=== PATIENT | male | born 1960 | race Caucasian/White ===

== ENCOUNTER 2016-07-23 01:50 | Emergency (ER) | payer MEDICARE, MEDICAID ==
[2016-07-23] MEDS ORDERED: CLINDAMYCIN 150 MG CAPSULE PO STA (03:08)
[2016-07-23] MEDS ORDERED: KETOROLAC 60 MG/2 ML VIAL IM STA (03:09)
[2016-07-23] MEDS ORDERED: KETOROLAC 60 MG/2 ML VIAL ONE (03:11)
[2016-07-23] MEDS ORDERED: CLINDAMYCIN 150 MG CAPSULE PO ONE (03:11)
== END 2016-07-23 03:35 | disposition home or self-care (01) ==
DX: L03.114 Cellulitis of left upper limb (principal); M54.42 Lumbago with sciatica, left side; G89.29 Other chronic pain; I10 Essential (primary) hypertension; M19.90 Unspecified osteoarthritis, unspecified site; F15.10 Other stimulant abuse, uncomplicated; F17.200 Nicotine dependence, unspecified, uncomplicated
CPT/HCPCS: 96372; 99283; A9270

== ENCOUNTER 2016-11-15 10:26 | Outpatient (CLI) | payer MEDICARE, MEDICAID | END 2016-11-15 10:27 | disposition critical access hospital (66) | LOC: EMS 10:26 | PROVIDERS: ATTEND Surgery | DX: M54.5 Low back pain (principal) | CPT/HCPCS: A0425; A0429 ==

== ENCOUNTER 2016-11-15 10:45 | Emergency (ER) | payer MEDICARE, MEDICAID ==
[2016-11-15] MEDS ORDERED: LIDOCAINE PATCH 5% TOP STA (10:56)
[2016-11-15] MEDS ORDERED: clonazePAM 0.5 MG TABLET PO STA (10:57)
[2016-11-15] MEDS ORDERED: oxyCODONE 5 MG TABLET PO STA ×2 (11:00→16:27)
[2016-11-15] MEDS ORDERED: oxyCODONE 5 MG TABLET ONE ×2 (11:07→16:45)
--- NOTE | 2016-11-15 11:07 | ED Physician Documentation ---
History of Present Illness - Stated complaint Stated Complaint: LOW BACK PX - Chief complaint Chief Complaint: Back Pain - Additonal information Additional information: hx from pt 56 male IVDA meth last use 3 weeks ago also hx back pain with sciatica to ER for 2 reasons 1) he called 911 because he has terrible low back pain with sciatica down posterior legs luciano and he was unable to get up off the floor, no incontinence, no abd pain, no numbness, diffusely weak luciano LE 2/2 pain 2) Nancie sent police to do a wellness check on pt 2/2 pt sending an email and/ or text indicating violent psychosis examples from his email/text include the following "it's the basis of my knowledge or theory by my own research and having developed many thing's for them as a x-file. We are nothing but a freq that binds anti-matter into matter and it's the electro magnetic force that keeps us bound and earth is our ground and why we call her our mother" "she will never make it off the property the next time she comes here to put it in my face it will be the last straw, I've asked her many times not to keep mind fucking me and she has persisted in doing it every time and she keeps driving it in deeper so don't worry I'll do my best not to harm her, this is my cry for help" "I can vaporize the whole No end of Alex and set in motion a chain reaction from sitting on a fault line that can make [facility] property. My plan B that has made them back off and move the 's nuclear weapons from the base here, it's my way from them just killing me before they can counter or neutralize my plan as it will happen by the polar shift naturally as we are coming into an ice age its not solar global warming its a life cycle of our planet and the that evidence has proven from the arctic ice caps so don't get freaked out by anything I'm the least of many other aspects that are a real threat's" he also had left arm pain s injury for at least a few days, no CP back pain neck pain soa diaphoresis NV Review of Systems Constitutional: denies: Fever, Chills Throat: denies: Sore throat Cardiac: denies: Chest pain / pressure Respiratory: denies: Dyspnea GI: denies: Abdominal Pain : reports: Dysuria Musculoskeletal: reports: Back pain Neurologic: reports: Generalized weakness (both legs). denies: Numbness Endocrine: denies: Easy bruising / bleeding Immunocompromised: denies: Immunocompromised PD PAST MEDICAL HISTORY - Past Medical History Cardiovascular: None, Hypertension Respiratory: Asthma, COPD Neuro: None Endocrine/Autoimmune: None GI: GERD, Hepatitis : Benign prostate hypertrophy Psych: Panic attacks, ADD/ADHD Musculoskeletal: Osteoarthritis, Chronic back pain Derm: None - Past Surgical History Past Surgical History: Yes Ortho: Knee replacement, Carpal Tunnel surgery - Present Medications Home Medications: Ambulatory Orders Medication Instructions Recorded Confirmed Albuterol Sulfate [Proair Hfa 2 puffs IH QID PRN #1 hfa.aer.ad 02/03/16 02/11/16 Inhaler] Clindamycin HCl [Cleocin HCl] 300 mg PO QID #28 capsule 02/11/16 Ondansetron HCl [Zofran] 4 mg PO Q6H PRN #20 tablet 02/11/16 Tamsulosin [Flomax] 02/15/16 02/15/16 Clindamycin HCl 300 mg PO Q6HR 7 Days 07/23/16 - Allergies Allergies/Adverse Reactions: Allergies Allergy/AdvReac Type Severity Reaction Status Date / Time cephalexin monohydrate * AdvReac SWELLING Verified 07/23/16 02:11 [From Keflex] codeine [Codeine] AdvReac SWELLING Verified 07/23/16 02:11 NYLON TAPE AdvReac Hives Uncoded 02/11/16 06:07 - Social History Does the pt smoke?: Yes Smoking Status: Current every day smoker Does the pt drink ETOH?: Yes Does the pt have substance abuse?: Yes - Immunizations Immunizations are current?: No Immunizations: TDAP >10years/unknown - POLST Patient has POLST: No PD ED PE NORMAL - Vitals Vital signs reviewed: Yes - Neck Neck: Supple, no meningeal sign - Cardiac Cardiac: RRR - Respiratory Respiratory: No respiratory distress, Clear bilaterally - Abdomen Abdomen: Soft, Non tender - Back Back: Other (no focal redness or swelling or warmth, TTP across low lumbar region, luciano hip flex/knee ext/foot dorsi/plantar, and great toe ext are slightly wweak but seems mostly 2/2 pain, + sensation all dermatomes luciano, denies saddle anesthesia, patellar DTR 3/4 luciano, no clonus, nl babinski, + SLR luciano) - Derm Derm: Normal color - Extremities Extremities: No deformity, No edema, No calf tenderness / cord, Other (no arm swelling or redness) - Neuro Neuro: Alert and oriented X 3, Other Results - Vitals Vitals: Vital Signs - 24 hr 11/15/16 11/15/16 11/15/16 10:53 17:57 20:00 Temperature 37.1 C Heart Rate 91 79 81 Respiratory 22 16 16 Rate Blood Pressure 183/90 H O2 Saturation 96 95 99 11/15/16 11/15/16 11/16/16 22:00 23:49 01:25 Temperature Heart Rate 80 77 79 Respiratory 16 16 16 Rate Blood Pressure 164/79 H 180/93 H 154/87 H O2 Saturation 98 98 97 11/16/16 11/16/16 02:10 02:36 Temperature 36.4 C L Heart Rate 77 79 Respiratory 16 18 Rate Blood Pressure 161/84 H 159/85 H O2 Saturation 97 96 Oxygen O2 Source Room air - EKG (time done) 1232 Rate: Rate (enter#) Rhythm: NSR Intervals: Normal MS Ischemia: Q waves (anterior), Other (ST elev with assoc Q waves abd concave up similar to prior partial EKG scanned into EMR) - Labs Labs: Laboratory Tests 11/15/16 11/15/16 11/15/16 11:18 11:18 11:18 WBC 8.1 RBC 5.05 Hgb 14.8 Hct 44.5 MCV 88.2 MCH 29.4 MCHC 33.3 RDW 14.0 Plt Count 141 MPV 9.8 Neut # 4.2 Lymph # 2.3 [place] # 1.2 H Eos # 0.3 Baso # 0.1 Absolute Nucleated RBC 0.00 Nucleated RBCs 0.0 Sodium 139 Potassium 3.4 L Chloride 106 Carbon Dioxide 25 Anion Gap 8.0 BUN 8 Creatinine 0.9 Estimated GFR (MDRD) 87 L Glucose 125 H Calcium 8.6 Total Bilirubin AST ALT Alkaline Phosphatase Troponin I 0.06 Total Protein Albumin Globulin Albumin/Globulin Ratio Lipase TSH Urine Color Urine Clarity Urine pH Ur Specific [place] Urine Protein Urine Glucose (UA) Urine Ketones Urine Occult Blood Urine Nitrite Urine Bilirubin Urine Urobilinogen Ur Leukocyte Esterase Ur Microscopic Review Urine Culture Comments Salicylates < 6.0 Urine Opiates Screen Ur Oxycodone Screen Urine Methadone Screen Ur Propoxyphene Screen Acetaminophen < 10 L Ur Barbiturates Screen Ur Tricyclics Screen Ur Phencyclidine Scrn Ur Amphetamine Screen U Methamphetamines Scrn U Benzodiazepines Scrn Urine Cocaine Screen U Cannabinoids Screen Ethyl Alcohol < 5.0 11/15/16 11/15/16 11/15/16 11:18 16:20 20:16 WBC RBC Hgb Hct MCV MCH MCHC RDW Plt Count MPV Neut # Lymph # [place] # Eos # Baso # Absolute Nucleated RBC Nucleated RBCs Sodium 138 Potassium 3.6 Chloride 108 Carbon Dioxide 25 Anion Gap 5.0 L BUN 8 Creatinine 0.9 Estimated GFR (MDRD) 87 L Glucose 115 H Calcium 8.4 L Total Bilirubin 0.6 AST 201 H ALT 466 H Alkaline Phosphatase 76 Troponin I Total Protein 6.9 Albumin 3.7 Globulin 3.2 Albumin/Globulin Ratio 1.2 Lipase 75 H TSH 2.64 Urine Color YELLOW Urine Clarity CLEAR Urine pH 6.0 Ur Specific [place] 1.025 Urine Protein NEGATIVE Urine Glucose (UA) NEGATIVE Urine Ketones NEGATIVE Urine Occult Blood NEGATIVE Urine Nitrite NEGATIVE Urine Bilirubin NEGATIVE Urine Urobilinogen 0.2 (NORMAL) Ur Leukocyte Esterase NEGATIVE Ur Microscopic Review NOT INDICATED Urine Culture Comments NOT INDICATED Salicylates Urine Opiates Screen NEGATIVE Ur Oxycodone Screen POSITIVE H Urine Methadone Screen NEGATIVE Ur Propoxyphene Screen NEGATIVE Acetaminophen Ur Barbiturates Screen NEGATIVE Ur Tricyclics Screen NEGATIVE Ur Phencyclidine Scrn NEGATIVE Ur Amphetamine Screen POSITIVE H U Methamphetamines Scrn POSITIVE H U Benzodiazepines Scrn NEGATIVE Urine Cocaine Screen NEGATIVE U Cannabinoids Screen NEGATIVE Ethyl Alcohol 11/15/16 20:16 WBC RBC Hgb Hct MCV MCH MCHC RDW Plt Count MPV Neut # Lymph # [place] # Eos # Baso # Absolute Nucleated RBC Nucleated RBCs Sodium Potassium Chloride Carbon Dioxide Anion Gap BUN Creatinine Estimated GFR (MDRD) Glucose Calcium Total Bilirubin AST ALT Alkaline Phosphatase Troponin I 0.04 Total Protein Albumin Globulin Albumin/Globulin Ratio Lipase TSH Urine Color Urine Clarity Urine pH Ur Specific [place] Urine Protein Urine Glucose (UA) Urine Ketones Urine Occult Blood Urine Nitrite Urine Bilirubin Urine Urobilinogen Ur Leukocyte Esterase Ur Microscopic Review Urine Culture Comments Salicylates Urine Opiates Screen Ur Oxycodone Screen Urine Methadone Screen Ur Propoxyphene Screen Acetaminophen Ur Barbiturates Screen Ur Tricyclics Screen Ur Phencyclidine Scrn Ur Amphetamine Screen U Methamphetamines Scrn U Benzodiazepines Scrn Urine Cocaine Screen U Cannabinoids Screen Ethyl Alcohol - Rads (name of study) MRI L spine with without Radiology: See rad report (see rad report - no epidural abscess - degen changes , canal stenosis, lateral recess stenosis) PD MEDICAL DECISION MAKING - ED course ED course: pt was given his usual klonopin and dex/percocet/lido for his back pain EKG abn but appears similar to the prior partial EKG scanned 11/2013 and trop is neg after several days of these sx (per pt hx) MRI neg for acute infection/epidural abscess blood work WNL pt has not provided UA tox screen but admits to using meth and strongly doubt a UTI would cause acute exacerbation of mental health issues, hx mental health and do not feel these sx are simply adverse effect of meth use, per police who know pt well he has a hx of mental health, psychosis, and violent threats within ability of pt uncooperative and threatening behavior towards staff he has been medically cleared and needs to be seen by DCR for invol mental health care pt became so threatening towards staff that police had to be called for staff safety - now that pt has been medically cleared, he could be seen by DCR in care home setting if police feel appropriate nurse Mcgill spoke to [place] who were at pt house when EMS arrived - per d /w [place] have taken care of notifying potential future victims of violence by this pt [place] [facility] at bedside and states he will not detain the pt for threatening staff but will wait in ER with pt until DCR arrives, [facility] called and will dispatch so DCR Nitza came to see pt pt continues to be uncooperative, belligerent to nursing, continued to leave the ER to go to the parking lot, police and security needing to constantly be in attendance, given PO zyprexa as well as the decadron klonopin, oxycodone and lidocaine - eventually had to be placed in restraints DCR still trying to place pt at 7 PM - [facility] feels pt not appropriate for their milieu [facility] - one bed and already considering diff pt for that bed [facility] - has beds - unable to receive DCRs faxes so has not evaluated pt yet [facility] - has beds - unable to receive DCRs faxes so has not evaluated pt yet [facility] - has beds - requests more labs which were ordered tuned over to mid shift Dr Patricio Departure - Departure Disposition: 65 Psych Hosp/Unit DC/Xfer Clinical Impression: Violent behavior Psychosis Qualifiers: Psychosis type: other Qualified Code(s): F28 - 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
[2016-11-15] MEDS ORDERED: DEXAMETHASONE 10 MG/ML VIAL ONE (11:08)
[2016-11-15] MEDS ORDERED: clonazePAM 0.5 MG TABLET PO ONE (11:08)
[2016-11-15] MEDS ORDERED: LIDOCAINE PATCH 5% TOP ONE (11:08)
[2016-11-15] MEDS: DEXAMETHASONE 10 MG/ML VIAL PO STA ×2 (11:23→11:25)
[2016-11-15 11:40] LABS: BASOPHILS # (AUTO) 0.1 10^3/uL (0.0-0.1); BASOPHILS % (AUTO) 1.3 %; EOSINOPHILS # (AUTO) 0.3 10^3/uL (0.0-0.7); HCT - HEMATOCRIT 44.5 % (42.0-52.0); HGB - HEMOGLOBIN 14.8 g/dL (14.0-18.0); LYMPHOCYTES # (AUTO) 2.3 10^3/uL (1.5-3.5); LYMPHOCYTES % (AUTO) 27.6 %; MEAN CORPUSCULAR HEMOGLOBIN 29.4 pg (27.0-31.0); MEAN CORPUSCULAR HGB CONC 33.3 g/dL (32.0-36.0); MEAN CORPUSCULAR VOLUME 88.2 fL (80.0-94.0); MEAN PLATELET VOLUME 9.8 fL (7.4-11.4); MONOCYTES # (AUTO) 1.2 10^3/uL (0.0-1.0); MONOCYTES % (AUTO) 15.1 %; NEUTROPHILS # (AUTO) 4.2 10^3/uL (1.5-6.6); RED BLOOD COUNT 5.05 10^6/uL (4.70-6.10); UNCORRECTED WHITE BLOOD COUNT 8.1 x10^3/uL; WHITE BLOOD COUNT 8.1 x10^3/uL (4.8-10.8)
[2016-11-15 11:46] LABS: BUN - BLOOD UREA NITROGEN 8 mg/dL (6-20); CALCIUM 8.6 mg/dL (8.5-10.3); CARBON DIOXIDE - CO2 25 mmol/L (21-32); CHLORIDE 106 mmol/L (101-111); CREATININE 0.9 mg/dL (0.6-1.2); GFR - MDRD 87 (>89); GLUCOSE 125 mg/dL (70-100); POTASSIUM 3.4 mmol/L (3.5-5.0); SALICYLATE < 6.0 mg/dL; SODIUM 139 mmol/L (135-145)
[2016-11-15 11:49] LABS: ACETAMINOPHEN < 10 ug/mL (10-30)
[2016-11-15] MEDS ORDERED: GADOBUTROL 10 MMOL/10 ML VIAL IVP ONE (12:12)
--- NOTE | 2016-11-15 12:41 | MRI Report ---
EXAM: MRI LUMBAR SPINE WITHOUT AND WITH CONTRAST EXAM DATE: 11/15/2016 11:51 AM. CLINICAL HISTORY: IVDA low back pain with sciatica. COMPARISONS: None. TECHNIQUE: Multiplanar, multisequence T1-weighted and fluid-sensitive sequences of the lumbar spine f rom T12 to S1 before and after administration of intravenous contrast. IV contrast: 10 cc Gadavist. O ther: None. FINDINGS: Spinal Cord: The conus terminates at L1. The conus medullaris and cauda equina are unremarkable. Alignment: Minimal, 1.5 mm, spondylolisthesis is seen at L4-L5. Bone Marrow: Five [id number]-mopusgh lumbar vertebral bodies are assumed. No gross fractures or bone les ions. No bone marrow edema or abnormal enhancement. Disk Levels/Facets: T12-L1: Unremarkable on sagittal series. L1-L2: Unremarkable on sagittal series. L2-L3: Unremarkable. L3-L4: Mild degenerative facet changes seen bilaterally. Thickening of the ligamentum flavum is noted . Mild loss of disk space height is seen. Minimal circumferential disk bulge is seen. Effacement of t he thecal sac with crowding of cauda equina nerve roots is noted. Mild canal stenosis. L4-L5: Moderate degenerative facet changes seen. Thickening of the ligamentum flavum is noted. Minima l fluid and enhancement is seen in the left facet joint. Minimal dorsal with mild lateral circumferen tial disk bulge. Effacement of the thecal sac and descending L5 nerve roots is seen. Marked canal and lateral recess stenosis is present. L5-S1: Mild degenerative facet changes seen. Mild thickening of the ligamentum flavum is noted. Mild dorsal and dorsolateral disk bulge is seen. Mild effacement of the thecal sac is noted. No stenosis. Spinal Canal: No enhancing masses within the spinal canal. No epidural abscess. Musculature: Normal. No edema, abnormal enhancement, or fatty atrophy. Other: The partially visualized retroperitoneum is unremarkable. IMPRESSION: 1. Mild spondylosis in the mid and lower lumbar spine. 2. L3-L4: Mild degenerative facet and minimal degenerative disk change. Mild canal stenosis. 3. L4-L5: Moderate degenerative facet and mild degenerative disk change. Marked canal stenosis. Bilat eral marked proximal lateral recess stenosis. -Minimal fluid and enhancement is seen in the hypertrophied left facet joint. This is likely degenera tive in nature rather than indicative of infection. 4. L5-S1: Mild degenerative facet and minimal degenerative disk change. No stenosis. 5. No disk space or paraspinous abnormal enhancement or edema is seen to suggest inflammatory/infecti ous process. Comment: The following findings are so common in adults without low back pain that while we report th eir presence, they must be interpreted with caution and in the context of the clinical situation. (Re royce Geiger et al, Spine 2001) Prevalence of findings in patients without low back pain: Disk degeneration (any evidence): 92% Disk desiccation/T2 signal loss: 83% Disk height loss: 56% Disk bulge: 64% Disk protrusion: 32% Annular tear/high intensity zone: 38% [facility] Referring Provider Line: [phone] SITE ID: [id number]
[2016-11-15] MEDS ORDERED: OLANZapine ODT 5 MG TABLET TL STA (16:27)
[2016-11-15 16:31] LABS: BILIRUBIN,URINE NEGATIVE (NEGATIVE)
[2016-11-15 16:35] LABS: UA CHARGE (STRIP ONLY) YES; UR CULTURE IF IND NOT INDICATED
[2016-11-15] MEDS ORDERED: OLANZapine ODT 5 MG TABLET TL ONE (16:45)
[2016-11-15 20:42] LABS: ALBUMIN/GLOBULIN RATIO 1.2 (1.0-2.2); BILIRUBIN,TOTAL 0.6 mg/dL (0.2-1.0); CALCIUM 8.4 mg/dL (8.5-10.3); CREATININE 0.9 mg/dL (0.6-1.2); TOTAL PROTEIN 6.9 g/dL (6.7-8.2)
[2016-11-15 20:57] LABS: POTASSIUM 3.6 mmol/L (3.5-5.0)
[2016-11-15] MEDS ORDERED: METOPROLOL TARTRATE 25 MG TABLET PO SCH (23:45)
[2016-11-15] MEDS ORDERED: METOPROLOL TARTRATE 50 MG TABLET PO STA (23:56)
[2016-11-16] MEDS ORDERED: METOPROLOL TARTRATE 25 MG TABLET ONE (00:01)
--- NOTE | 2016-11-16 00:25 | ED Physician Documentation ---
ED Addendum - Addendum Addendum: 11/16/16 00:23 Patient is a 56-year-old gentleman who was signed out to me by Dr. Clarke for [facility] evaluation. A bed was found at [facility] for the patient. He remains sleeping in the emergency department during most of his stay after being medicated with zyprexa. He was given a dose of metoprolol for hypertension. Patient was placed on an involuntary hold by the [facility] and he will be transferred to [place]. This document was made in part using voice recognition software. While efforts are made to proofread this document, sound alike and grammatical errors may occur. Departure - Departure Disposition: 65 Psych Hosp/Unit DC/Xfer Clinical Impression: Violent behavior Psychosis Qualifiers: Psychosis type: other Qualified Code(s): F28 - Other psychotic disorder not due to a substance or known physiological condition Spinal stenosis Qualifiers: Spinal region: unspecified Qualified Code(s): M48.00 - Spinal stenosis, site unspecified Condition: Good
[2016-11-16] MEDS: OLANZapine ODT 5 MG TABLET TL ONE ×2 (02:23→02:36)
[2016-11-16] MEDS ORDERED: OLANZapine ODT 5 MG TABLET TL ONE (02:25)
[2016-11-16] MEDS ORDERED: OLANZapine 10 MG VIAL IM ONE (02:29)
[2016-11-16] MEDS ORDERED: OLANZapine 10 MG VIAL IM STA (02:31)
[2016-11-16 02:37] VITALS: BP 159/85
== END 2016-11-16 02:40 ==
LOC: EDUNIT# → ED 10:45
DX: F28 Other psychotic disorder not due to a substance or known physiological condition (principal); M48.00 Spinal stenosis, site unspecified; I10 Essential (primary) hypertension; F17.200 Nicotine dependence, unspecified, uncomplicated; Z96.659 Presence of unspecified artificial knee joint
CPT/HCPCS: 36415; 72158; 80048; 80053; 80306; 80307; 81003; 83690; 84443; 84484; 85025; 93005; 96372; 99285; A9270; A9585; G0480; 80320; 80329; 81001; 87086

== ENCOUNTER 2016-11-16 02:37 | Outpatient (CLI) | payer MEDICARE, MEDICAID | END 2016-11-16 02:38 | LOC: EMS 02:37 | PROVIDERS: ATTEND Surgery | DX: F91.9 Conduct disorder, unspecified (principal) | CPT/HCPCS: A0425; A0428 ==

== ENCOUNTER 2017-10-08 23:24 | Outpatient (CLI) | payer MEDICARE, MEDICAID | END 2017-10-08 23:25 | disposition short-term general hospital (02) | LOC: EMS 23:24 | PROVIDERS: ATTEND Surgery | DX: R20.0 Anesthesia of skin (principal); R29.810 Facial weakness; R47.81 Slurred speech | CPT/HCPCS: A0425; A0427; A0999 ==

== ENCOUNTER 2020-05-14 09:52 | Outpatient (CLI) | payer MEDICARE, MEDICAID | END 2020-05-14 09:53 | disposition short-term general hospital (02) | LOC: EMS 09:52 | DX: R45.851 Suicidal ideations (principal); R29.91 Unspecified symptoms and signs involving the musculoskeletal system; R51.9 Headache, unspecified; R11.0 Nausea | CPT/HCPCS: A0425; A0429; A0888 ==

== ENCOUNTER 2021-01-15 14:36 | Outpatient (CLI) | payer OTHER, MEDICARE, MEDICAID | END 2021-01-15 14:37 | disposition short-term general hospital (02) | LOC: EMS 14:36 | DX: S01.111A Laceration without foreign body of right eyelid and periocular area, initial encounter (principal); Y00.XXXA Assault by blunt object, initial encounter; R42 Dizziness and giddiness | CPT/HCPCS: A0425; A0429 ==

== ENCOUNTER 2021-02-14 00:48 | Emergency (ER) | payer MEDICARE, MEDICAID, OTHER ==
[2021-02-14 00:59] VITALS: BP 199/110
--- NOTE | 2021-02-14 01:32 | ED Physician Documentation ---
History of Present Illness - Stated complaint Stated Complaint: HIGH BLOOD SUGAR - Chief complaint Chief Complaint: General - History obtained from History obtained from: Patient - Additonal information Additional information: 60yM with pmh methamphetamine abuse, DM noncompliant with meds, presents to the ED via ems with fingerstick 530 at home and 487 here. When asked why he called ems patient states there is a person in his home he doesn't get along with who is keeping him from eating the right foods and that is why his sugar is elevated. patient refuses medications and intervention. when asked how we can help him, he states he wants food because "that will bring my sugar down". Extensive education given. patient denies fever, n/v/abd pain, urinary sx. Review of Systems Ten Systems: 10 systems reviewed and negative Constitutional: denies: Fever, Chills Cardiac: denies: Chest pain / pressure Respiratory: denies: Dyspnea GI: denies: Abdominal Pain, Nausea, Vomiting PD PAST MEDICAL HISTORY - Past Medical History Cardiovascular: None, Hypertension Respiratory: Asthma, COPD Endocrine/Autoimmune: None GI: GERD, Hepatitis : Benign prostate hypertrophy Psych: Panic attacks, ADD/ADHD Musculoskeletal: Osteoarthritis, Chronic back pain Derm: None - Past Surgical History Past Surgical History: Yes Ortho: Knee replacement, Carpal Tunnel surgery - Present Medications Home Medications: Ambulatory Orders Medication Instructions Recorded Confirmed Albuterol Sulfate [Proair Hfa 2 puffs IH QID PRN #1 hfa.aer.ad 02/03/16 02/11/16 Inhaler] Ondansetron HCl [Zofran] 4 mg PO Q6H PRN #20 tablet 02/11/16 clindamycin HCL [Cleocin HCl] 300 mg PO QID #28 capsule 02/11/16 Tamsulosin [Flomax] 02/15/16 02/15/16 Clindamycin HCl [Clindamycin 300MG 300 mg PO Q6HR 7 Days capsule 07/23/16 CAP] - Allergies Allergies/Adverse Reactions: Allergies Allergy/AdvReac Type Severity Reaction Status Date / Time cephalexin monohydrate * AdvReac SWELLING Verified 02/14/21 00:56 [From Keflex] codeine [Codeine] AdvReac SWELLING Verified 02/14/21 00:56 NYLON TAPE AdvReac Hives Uncoded 02/14/21 00:56 - Social History Does the pt smoke?: Yes Smoking Status: Current every day smoker Does the pt drink ETOH?: Yes Does the pt have substance abuse?: Yes - Immunizations Immunizations are current?: No Immunizations: TDAP >10years/unknown - POLST Patient has POLST: No PD ED PE NORMAL - Vitals Vital signs reviewed: Yes - General General: Alert and oriented X 3, No acute distress, Other (disheveled appearing) - HEENT HEENT: Atraumatic, PERRL, EOMI - Neck Neck: Supple, no meningeal sign - Cardiac Cardiac: RRR - Respiratory Respiratory: No respiratory distress, Clear bilaterally - Abdomen Abdomen: Non tender, Non distended - Derm Derm: Normal color, Warm and dry - Neuro Neuro: Alert and oriented X 3 Results - Vitals Vitals: Vital Signs - 24 hr 02/14/21 00:56 Temperature 36.9 C Heart Rate 91 Respiratory 18 Rate Blood Pressure 199/110 H O2 Saturation 96 Oxygen O2 Source Room air PD MEDICAL DECISION MAKING - ED course ED course: 60yM with uncontrolled diabetes, noncompliant with meds, presents requesting to stay here tonight and to have sandwich and drinks. Patient is unconcerned about his diabetes and says he has it under control and doesn't need medications. refusing insulin or medical intervention. will dc home. advised follow up with a primary doctor. return precautions given. Note patient left without papers. Departure - Departure Disposition: 01 Home, Self Care Clinical Impression: Hyperglycemia Condition: Stable Instructions: Hyperglycemia Comments: You were seen in the emergency department for hyperglycemia. Please follow up with a primary doctor to get started on medications when you are ready. Return to the ED if you have any new or worsening symptoms or other concerns. [facility] [address] [place] [address] [place] [phone]
== END 2021-02-14 01:37 | disposition home or self-care (01) ==
LOC: EDUNIT# → ED 00:48
DX: E11.65 Type 2 diabetes mellitus with hyperglycemia (principal); I10 Essential (primary) hypertension; F17.200 Nicotine dependence, unspecified, uncomplicated
CPT/HCPCS: 99283

== ENCOUNTER 2021-02-14 09:01 | Outpatient (CLI) | payer MEDICARE, MEDICAID | END 2021-02-14 09:02 | disposition critical access hospital (66) | LOC: EMS 09:01 | DX: E11.65 Type 2 diabetes mellitus with hyperglycemia (principal) | CPT/HCPCS: A0425; A0429 ==

== ENCOUNTER 2021-12-08 17:43 | Outpatient (CLI) | payer MEDICARE, MEDICAID | END 2021-12-08 17:44 | disposition short-term general hospital (02) | LOC: EMS 17:43 | DX: R07.9 Chest pain, unspecified (principal); R06.02 Shortness of breath; R53.83 Other fatigue; I25.2 Old myocardial infarction; Z72.0 Tobacco use; R45.851 Suicidal ideations; F32.A Depression, unspecified; Z59.02 Unsheltered homelessness | CPT/HCPCS: A0425; A0427 ==

== ENCOUNTER 2021-12-24 15:15 | Emergency (ER) | payer MEDICAID, MEDICARE, OTHER ==
[2021-12-24 15:42] LABS: BASOPHILS % (AUTO) 0.6 %; EOSINOPHILS % (AUTO) 0.7 %; HCT - HEMATOCRIT 40.6 % (42.0-52.0); HGB - HEMOGLOBIN 13.7 g/dL (14.0-18.0); LYMPHOCYTES % (AUTO) 18.6 %; MEAN CORPUSCULAR HEMOGLOBIN 29.1 pg (27.0-31.0); MEAN CORPUSCULAR HGB CONC 33.7 g/dL (32.0-36.0); MEAN CORPUSCULAR VOLUME 86.2 fL (80.0-94.0); MEAN PLATELET VOLUME 11.3 fL (7.4-11.4); MONOCYTES % (AUTO) 13.7 %; PLT - PLATELET COUNT 208 10^3/uL (130-450); RED BLOOD COUNT 4.71 10^6/uL (4.70-6.10); WHITE BLOOD COUNT 12.3 x10^3/uL (4.8-10.8)
[2021-12-24 15:43] LABS: ABNORMAL LYMPHS % (MANUAL) 0 %; BAND NEUTROPHILS % (MANUAL) 0 %
--- NOTE | 2021-12-24 15:45 | ED Physician Documentation ---
PD HPI DYSPNEA - Stated complaint Stated Complaint: SOA - Chief complaint Chief Complaint: Resp - History obtained from History obtained from: Patient - Additional information Additional information: Patient is a 61-year-old male with a history of COPD presenting for evaluation of shortness of air for several weeks. He has reported a nonproductive cough. He does have inhalers which she has been using without improvement. He was seen 1 month ago and was going to be discharged on Lasix but left prior to receiving prescriptions. He is currently in the custody of the [facility].He reports having left-sided chest pain for the last week. He is reported nausea but no significant vomiting. He also reports having upper abdominal pain. Review of Systems Constitutional: denies: Fever Nose: reports: Congestion Throat: reports: Sore throat Cardiac: reports: Chest pain / pressure Respiratory: reports: Dyspnea, Cough GI: reports: Abdominal Pain, Nausea. denies: Vomiting : denies: Dysuria Musculoskeletal: denies: Extremity pain Neurologic: denies: Headache PD PAST MEDICAL HISTORY - Past Medical History Cardiovascular: None, Hypertension Respiratory: Asthma, COPD Endocrine/Autoimmune: None GI: GERD, Hepatitis : Benign prostate hypertrophy Psych: Panic attacks, ADD/ADHD Musculoskeletal: Osteoarthritis, Chronic back pain Derm: None - Past Surgical History Past Surgical History: Yes Ortho: Knee replacement, Carpal Tunnel surgery - Present Medications Home Medications: Ambulatory Orders Medication Instructions Recorded Confirmed Albuterol Sulfate [Proair Hfa 2 puffs IH QID PRN #1 hfa.aer.ad 02/03/16 02/11/16 Inhaler] clindamycin HCL [Cleocin HCl] 300 mg PO QID #28 capsule 02/11/16 ondansetron HCL [Zofran] 4 mg PO Q6H PRN #20 tablet 02/11/16 Tamsulosin [Flomax] 02/15/16 02/15/16 Clindamycin HCl [Clindamycin 300MG 300 mg PO Q6HR 7 Days capsule 07/23/16 CAP] Furosemide [Lasix] 20 mg PO DAILY #30 tablet 11/18/21 - Allergies Allergies/Adverse Reactions: Allergies Allergy/AdvReac Type Severity Reaction Status Date / Time cephalexin monohydrate * AdvReac SWELLING Verified 12/24/21 15:19 [From Keflex] codeine [Codeine] AdvReac SWELLING Verified 12/24/21 15:19 NYLON TAPE AdvReac Hives Uncoded 12/24/21 15:19 - Social History Does the pt smoke?: Yes Smoking Status: Current every day smoker Does the pt drink ETOH?: Yes Does the pt have substance abuse?: Yes - Immunizations Immunizations are current?: No Immunizations: TDAP >10years/unknown - POLST Patient has POLST: No PD ED PE NORMAL - General General: Alert and oriented X 3, No acute distress, Well developed/nourished - HEENT HEENT: Atraumatic, Moist mucous membranes - Neck Neck: Supple, no meningeal sign, No bony TTP - Cardiac Cardiac: RRR, Strong equal pulses - Respiratory Respiratory: No respiratory distress, Other (Diminished breath sounds,Wheezing) - Abdomen Abdomen: Normal bowel sounds, Soft, Non distended. No: Non tender (Right upper quadrant tenderness to palpation) - Extremities Extremities: No edema, No calf tenderness / cord Results - Vitals Vitals: Vital Signs - 24 hr 12/24/21 12/24/21 12/24/21 15:15 15:28 15:49 Temperature 36.8 C Heart Rate 74 74 74 Respiratory 24 16 13 Rate Blood Pressure 158/105 H 160/112 H O2 Saturation 95 96 If not protocol 10 : Oxygen Flow, liters/minute 12/24/21 12/24/21 17:19 20:30 Temperature 36.6 C Heart Rate 74 79 Respiratory 19 24 Rate Blood Pressure 154/115 H 152/110 H O2 Saturation 97 95 If not protocol : Oxygen Flow, liters/minute Oxygen O2 Source Room air - Labs Labs: Laboratory Tests 12/24/21 12/24/21 12/24/21 15:36 15:36 15:36 WBC 12.3 H RBC 4.71 Hgb 13.7 L Hct 40.6 L MCV 86.2 MCH 29.1 MCHC 33.7 RDW 15.0 Plt Count 208 MPV 11.3 Neut # (Auto) Not Reportable Lymph # (Auto) Not Reportable [place] # (Auto) Not Reportable Eos # (Auto) Not Reportable Baso # (Auto) Not Reportable Absolute Nucleated RBC Not Reportable Total Counted 100 Band Neuts % (Manual) 0 Reactive Lymphs % (Man) 7 Abnorm Lymph % (Manual) 0 Nucleated RBC % Not Reportable Neutrophils # (Manual) 8.2 H Lymphocytes # (Manual) 2.1 Monocytes # (Manual) 1.8 H Eosinophils # (Manual) 0.0 Basophils # (Manual) 0.1 Differential Comment MANUAL DIFFERENTIAL WBC Morphology NORMAL APPEARANCE Platelet Estimate NORMAL (130-450,000) Platelet Morphology NORMAL APPEARANCE RBC Morph Micro Appear 1+ POLYCHROMASIA D-Dimer 813.5 H Sodium 138 Potassium 3.8 Chloride 109 Carbon Dioxide 17 L Anion Gap 12.0 BUN 36 H Creatinine 1.4 H Estimated GFR (MDRD) 52 L Glucose 128 H Calcium 8.6 Total Bilirubin 2.4 H AST 327 H ALT 358 H Alkaline Phosphatase 117 Troponin I High Sens B-Natriuretic Peptide Total Protein 6.6 L Albumin 3.8 Globulin 2.8 Albumin/Globulin Ratio 1.4 Lipase 24 Nasal Adenovirus (PCR) Nasal B. parapertussis DNA (PCR) Nasal Coronavir 229E PCR Nasal Coronavir HKU1 PCR Nasal Coronavir NL63 PCR Nasal Coronavir OC43 PCR Nasal Enterovir/Rhinovir PCR Nasal Influenza B PCR Nasal Influenza A PCR Nasal Parainfluen 1 PCR Nasal Parainfluen 2 PCR Nasal Parainfluen 3 PCR Nasal Parainfluen 4 PCR Nasal RSV (PCR) Nasal B.pertussis DNA PCR Nasal C.pneumoniae (PCR) Tacho Human Metapneumo PCR Nasal M.pneumoniae (PCR) Nasal SARS-CoV-2 (PCR) Group A Strep Rapid 12/24/21 12/24/21 12/24/21 15:36 15:36 16:49 WBC RBC Hgb Hct MCV MCH MCHC RDW Plt Count MPV Neut # (Auto) Lymph # (Auto) [place] # (Auto) Eos # (Auto) Baso # (Auto) Absolute Nucleated RBC Total Counted Band Neuts % (Manual) Reactive Lymphs % (Man) Abnorm Lymph % (Manual) Nucleated RBC % Neutrophils # (Manual) Lymphocytes # (Manual) Monocytes # (Manual) Eosinophils # (Manual) Basophils # (Manual) Differential Comment WBC Morphology Platelet Estimate Platelet Morphology RBC Morph Micro Appear D-Dimer Sodium Potassium Chloride Carbon Dioxide Anion Gap BUN Creatinine Estimated GFR (MDRD) Glucose Calcium Total Bilirubin AST ALT Alkaline Phosphatase Troponin I High Sens 41.5 H* B-Natriuretic Peptide 2015 H Total Protein Albumin Globulin Albumin/Globulin Ratio Lipase Nasal Adenovirus (PCR) Nasal B. parapertussis DNA (PCR) Nasal Coronavir 229E PCR Nasal Coronavir HKU1 PCR Nasal Coronavir NL63 PCR Nasal Coronavir OC43 PCR Nasal Enterovir/Rhinovir PCR Nasal Influenza B PCR Nasal Influenza A PCR Nasal Parainfluen 1 PCR Nasal Parainfluen 2 PCR Nasal Parainfluen 3 PCR Nasal Parainfluen 4 PCR Nasal RSV (PCR) Nasal B.pertussis DNA PCR Nasal C.pneumoniae (PCR) Tacho Human Metapneumo PCR Nasal M.pneumoniae (PCR) Nasal SARS-CoV-2 (PCR) Group A Strep Rapid Negative 12/24/21 12/24/21 16:49 17:42 WBC RBC Hgb Hct MCV MCH MCHC RDW Plt Count MPV Neut # (Auto) Lymph # (Auto) [place] # (Auto) Eos # (Auto) Baso # (Auto) Absolute Nucleated RBC Total Counted Band Neuts % (Manual) Reactive Lymphs % (Man) Abnorm Lymph % (Manual) Nucleated RBC % Neutrophils # (Manual) Lymphocytes # (Manual) Monocytes # (Manual) Eosinophils # (Manual) Basophils # (Manual) Differential Comment WBC Morphology Platelet Estimate Platelet Morphology RBC Morph Micro Appear D-Dimer Sodium Potassium Chloride Carbon Dioxide Anion Gap BUN Creatinine Estimated GFR (MDRD) Glucose Calcium Total Bilirubin AST ALT Alkaline Phosphatase Troponin I High Sens 35.4 H* B-Natriuretic Peptide Total Protein Albumin Globulin Albumin/Globulin Ratio Lipase Nasal Adenovirus (PCR) NOT DETECTED Nasal B. parapertussis DNA (PCR) NOT DETECTED Nasal Coronavir 229E PCR NOT DETECTED Nasal Coronavir HKU1 PCR NOT DETECTED Nasal Coronavir NL63 PCR NOT DETECTED Nasal Coronavir OC43 PCR NOT DETECTED Nasal Enterovir/Rhinovir PCR NOT DETECTED Nasal Influenza B PCR NOT DETECTED Nasal Influenza A PCR NOT DETECTED Nasal Parainfluen 1 PCR NOT DETECTED Nasal Parainfluen 2 PCR NOT DETECTED Nasal Parainfluen 3 PCR NOT DETECTED Nasal Parainfluen 4 PCR NOT DETECTED Nasal RSV (PCR) NOT DETECTED Nasal B.pertussis DNA PCR NOT DETECTED Nasal C.pneumoniae (PCR) NOT DETECTED Tacho Human Metapneumo PCR NOT DETECTED Nasal M.pneumoniae (PCR) NOT DETECTED Nasal SARS-CoV-2 (PCR) NOT DETECTED Group A Strep Rapid PD MEDICAL DECISION MAKING - ED course Complexity details: reviewed results, re-evaluated patient, d/w patient, other ED course: Patient presenting for evaluation of shortness of breath for the last month as well as upper abdominal pain with nausea for the last week. He appears mildly dyspneic which slightly improved after neb treatment. Work-up suggest congestive heart failure. Additionally he was noted to have elevated bilirubin and LFT levels and right upper quadrant pain. CT scan and ultrasound were obtained with concerns for cholecystitis. Given elevated bilirubin I have concerns for biliary obstruction and patient may require an ERCP. We do not have MRI capabilities at this time to get an MRCP. Reviewed these results with patient as well as with the sheriff deputy who has accompanied him. They are aware that patient requires transfer to facility with GI capabilities. We will start patient on antibiotics at this time. Pt signed out to oncoming provider at shift change. Departure - Departure Disposition: 02 Transfer Acute Care Hosp Clinical Impression: Cholecystitis, Biliary obstruction, Congestive heart failure Condition: Serious
[2021-12-24] MEDS: IPRATROPIUM/ALBUTEROL 3 ML NEB INH STA (15:48)
[2021-12-24 16:06] LABS: BASOPHILS # (MANUAL) 0.1 10^3/uL (0-0.1); BASOPHILS % (MANUAL) 1 %; LYMPHOCYTES # (MANUAL) 2.1 10^3/uL (1.5-3.5); LYMPHOCYTES % (MANUAL) 10 %; MONOCYTES # (MANUAL) 1.8 10^3/uL (0.0-1.0); NEUTROPHILS # (MANUAL) 8.2 10^3/uL (1.5-6.6); REACTIVE LYMPHS % (MANUAL) 7 %
[2021-12-24 16:09] LABS: DIFFERENTIAL COMMENT MANUAL DIFFERENTIAL; PLATELET ESTIMATE, MANUAL NORMAL (130-450,000) (NORMAL); PLATELET MORPHOLOGY NORMAL APPEARANCE (NORMAL); WBC MORPHOLOGY (MULTIPLE) NORMAL APPEARANCE (NORMAL)
[2021-12-24] MEDS: clonazePAM 0.5 MG TABLET PO STA (16:10)
[2021-12-24 16:19] LABS: ALBUMIN 3.8 g/dL (3.2-5.5); ALBUMIN/GLOBULIN RATIO 1.4 (1.0-2.2); BILIRUBIN,TOTAL 2.4 mg/dL (0.2-1.0); CALCIUM 8.6 mg/dL (8.5-10.3); CREATININE 1.4 mg/dL (0.6-1.2); POTASSIUM 3.8 mmol/L (3.5-5.0); TOTAL PROTEIN 6.6 g/dL (6.7-8.2)
--- NOTE | 2021-12-24 16:27 | XRAY Report ---
PROCEDURE: Chest 1 View X-Ray INDICATIONS: SOA TECHNIQUE: One view of the chest was acquired. COMPARISON: 11/18/2021 FINDINGS: Surgical changes and devices: None. Lungs and pleura: No pleural effusions or pneumothorax. Increased interstitial markings in both lung s with central/perihilar predominance. Mild cephalization of pulmonary vasculature. Mediastinum: Mediastinal contours appear normal. Heart size is normal. Bones and chest wall: No suspicious bony lesions. Overlying soft tissues appear unremarkable. IMPRESSION: Findings of mild to moderate interstitial edema and pulmonary vascular congestion. Reviewed by: Brandon Antunez MD on 12/24/2021 4:25 PM PDT Approved by: Brandon Antunez MD on 12/24/2021 4:25 PM PDT Station ID: [id number]
[2021-12-24 17:15] LABS: RAPID STREP SCREEN Negative (Negative)
--- NOTE | 2021-12-24 17:34 | CT Report ---
PROCEDURE: ANGIO CHEST W/WO INDICATIONS: SOA/elevated d-dimer/please evaluate for PE CONTRAST: IV CONTRAST: Optiray 320 ml: 100 PO CONTRAST: *NO PO CONTRAST TECHNIQUE: After the administration of intravenous contrast, 2 mm axial images were acquired from the pulmonary apices to the posterior costophrenic angles during the arterial phase. In addition, 1 mm lung kernel and 5 mm soft tissue kernel reconstructions were performed. 3-dimensional coronal oblique maximum int ensity projection (MIP) reformats, 8 mm axial MIP, and 5 mm coronal and sagittal MPR reformats were t hen performed through the thorax. For radiation dose reduction, the following was used: automated exp osure control, adjustment of mA and/or kV according to patient size. COMPARISON: Correlation is made with the accompanying abdomen pelvis CT and the accompanying chest r adiograph, 12/24/2021. FINDINGS: Image quality: Excellent. Pulmonary arteries: Pulmonary arteries are normal in size, and demonstrate no intraluminal filling d efects to suggest central pulmonary embolism. Lungs and pleura: There is a small right-sided pleural effusion. No pneumothorax is seen. Mild genera lized groundglass opacity can be seen. No consolidative infiltrates are seen. Mediastinum: Heart size is mildly enlarged, without pericardial effusion. At least moderate coronary calcification is seen. No mediastinal or hilar adenopathy. Thoracic aorta is normal in caliber and enhancement. Esophagus is normal in caliber. There is a small hiatal hernia. Bones and chest wall: No suspicious bony lesions. Ribs and thoracic spine appear intact throughout. No axillary or supraclavicular adenopathy. The thyroid is normal in size and there are no incident al findings. Abdomen: There is reflux of contrast seen into the inferior vena cava and into the hepatic veins. The visualized portions of the upper abdominal structures are otherwise within normal limits. IMPRESSION: No findings of pulmonary embolism can be seen. Small right-sided pleural effusion. There is also cardiomegaly and ground glass opacity as well as re flux of contrast into the inferior vena cava and into the hepatic veins. This consultation findings i s highly suspicious for CHF. Incidental note is made of: Small hiatal hernia Reviewed by: Escobar Garcia MD on 12/24/2021 4:33 PM AKLUCILLE Approved by: Escobar Garcia MD on 12/24/2021 4:33 PM AKDT Station ID: [id number]
--- NOTE | 2021-12-24 17:38 | CT Report ---
PROCEDURE: Abdomen/Pelvis W INDICATIONS: RUQ pain/abnormal labs CONTRAST: IV CONTRAST: Optiray 320 ml: 100 PO CONTRAST: *NO PO CONTRAST TECHNIQUE: After the administration of IV contrast, 5 mm thick sections acquired from the diaphragms to the symp hysis. 5 mm thick coronal and sagittal reformats were acquired. For radiation dose reduction, the f ollowing was used: automated exposure control, adjustment of mA and/or kV according to patient size. COMPARISON: Correlation is made with the accompanying chest CT, 12/24/2021. FINDINGS: Image quality: Excellent. ABDOMEN: Lung bases: There is a small right-sided pleural effusion. Mild cardiomegaly is seen. Solid organs: Liver and spleen are normal in size and enhancement. There is a nonenhancing cyst see n within the inferior right liver measuring 12 mm a similar density, as on series 6 image 30. Gallbla dder demonstrates moderate wall thickening. Biliary system is non dilated. Pancreas enhances normal ly. No adrenal nodules. Kidneys demonstrate normal size and enhancement, without hydronephrosis. Peritoneum and bowel: Bowel loops demonstrate normal wall thickness and caliber. No free fluid or a ir. Mild distal colonic diverticulosis is seen, without findings of active diverticulitis. Nodes and vessels: No retroperitoneal or mesenteric adenopathy by size criteria. Aorta and inferior vena cava are normal in size. Miscellaneous: A mild fat-containing periumbilical hernia is seen. PELVIS: Genitourinary: At least moderate urinary bladder wall thickening is seen. Miscellaneous: No inguinal hernias or adenopathy. Bones: No suspicious bony lesions. No vertebral body compression fractures. IMPRESSION: Moderate wall thickening is seen of the gallbladder. Please consider cholecystitis. If cl inically appropriate, please consider a follow-up right upper quadrant ultrasound for further evaluat ion. There is at least moderate wall thickening seen of the urinary bladder. Please consider urinary outle t obstruction at palpation of this age. Differential diagnosis would also include cystitis. There is a small right-sided pleural effusion. Incidental note is made of: Simple appearing liver cyst Fat-containing periumbilical hernia Diverticulosis, without findings of active diverticulitis. Reviewed by: Escobar Garcia MD on 12/24/2021 4:37 PM AKDT Approved by: Escobar Garcia MD on 12/24/2021 4:37 PM AKDT Station ID: [id number]
[2021-12-24] MEDS: FUROSEMIDE 40 MG/4 ML VIAL IVP STA (18:00)
--- NOTE | 2021-12-24 18:14 | Ultrasound Report ---
PROCEDURE: Abdomen Limited INDICATIONS: RUQ pain/abnormal labs TECHNIQUE: Real-time scanning was performed of the right upper quadrant, with image documentation. COMPARISON: CT abdomen and pelvis earlier today. FINDINGS: Liver: Liver is normal in size. Increased in echogenicity. Cyst in the liver. Gallbladder: Gallbladder is within normal limits in size. No stones or sludge. Bladder wall measures 2 mm and is at the upper limits of normal. Trace pericholecystic fluid. Biliary ducts: Intrahepatic bile ducts are non-dilated. Extrahepatic bile duct caliber measures 6 m m. Normal is 6-7 mm or less in diameter, or 10 mm or less post-cholecystectomy. Pancreas: Visualized portions of the pancreas are sonographically normal. Right kidney: Right kidney measures 11.6 cm, cortex 1.7 cm . No hydronephrosis. No solid masses. Miscellaneous: Trace ascites. IMPRESSION: Exam is technically difficult. Patient is unable to hold her breath. 1. There is trace pericholecystic fluid. The gallbladder wall is at the upper limits of normal. There is a trace amount of ascites. These findings are nonspecific and could be active due to ascites. No gallstones. If clinically indicated HIDA scan may be helpful for further evaluation. 2. Increased echogenicity of the hepatic parenchyma. This is most commonly seen in hepatic steatosis. Other forms of hepatocellular disease could have a similar appearance. Reviewed by: Luis Grant MD on 12/24/2021 6:13 PM PDT Approved by: Luis Grant MD on 12/24/2021 6:13 PM PDT Station ID: [id number]
[2021-12-24] MEDS: ONDANSETRON 4 MG/2 ML VIAL IVP STA (18:20)
[2021-12-24 18:23] LABS: CORONAVIRUS 229E-RESP PCR NOT DETECTED; CORONAVIRUS HKU1-RESP PCR NOT DETECTED; CORONAVIRUS NL63-RESP PCR NOT DETECTED; CORONAVIRUS OC43-RESP PCR NOT DETECTED; HUMAN METAPNEUMOVIRUS NOT DETECTED; INFLUENZA A- RESP PCR PANEL NOT DETECTED; RHINOVIRUS/ENTEROVIRUS NOT DETECTED; SARS-CoV-2 -RESP PCR PANEL NOT DETECTED
[2021-12-24 18:24] LABS: B. PARAPERTUSSIS- RESP PCR PAN NOT DETECTED; B. PERTUSSIS- RESP PCR PANEL NOT DETECTED; C. PNEUMONIAE- RESP PCR PANEL NOT DETECTED; INFLUENZA B - RESP PCR PANEL NOT DETECTED; M. PNEUMONIAE- RESP PCR PANEL NOT DETECTED; PARAINFLUENZA VIRUS 1 NOT DETECTED; PARAINFLUENZA VIRUS 2 NOT DETECTED; PARAINFLUENZA VIRUS 3 NOT DETECTED; PARAINFLUENZA VIRUS 4 NOT DETECTED; RSV- RESP PCR PANEL NOT DETECTED
[2021-12-24] MEDS ORDERED: MEROPENEM 1 GM in SODIUM CHLORIDE 0.9% MINIBAG 100 ML IV SCH (22:00)
[2021-12-25] MEDS: MEROPENEM 1 GM in SODIUM CHLORIDE 0.9% MINIBAG 100 ML IV STA (02:53)
[2021-12-25] MEDS: SODIUM CHLORIDE 0.9% 1,000 ML IV STA (02:54)
[2021-12-25 05:07] LABS: BASOPHILS # (AUTO) 0.1 10^3/uL (0.0-0.1); BASOPHILS % (AUTO) 0.8 %; EOSINOPHILS # (AUTO) 0.2 10^3/uL (0.0-0.7); EOSINOPHILS % (AUTO) 1.4 %; HCT - HEMATOCRIT 40.1 % (42.0-52.0); HGB - HEMOGLOBIN 13.3 g/dL (14.0-18.0); LYMPHOCYTES % (AUTO) 18.3 %; MEAN CORPUSCULAR HEMOGLOBIN 28.6 pg (27.0-31.0); MEAN CORPUSCULAR HGB CONC 33.2 g/dL (32.0-36.0); MEAN CORPUSCULAR VOLUME 86.2 fL (80.0-94.0); MEAN PLATELET VOLUME 10.6 fL (7.4-11.4); MONOCYTES # (AUTO) 1.3 10^3/uL (0.0-1.0); MONOCYTES % (AUTO) 11.4 %; NEUTROPHILS # (AUTO) 7.5 10^3/uL (1.5-6.6); NEUTROPHILS % (AUTO) 67.6 %; NRBC ABSOLUTE COUNT (AUTO) 0.02 x10^3/uL; NUCLEATED RED BLOOD CELLS AUTO 0.2 /100WBC; PLT - PLATELET COUNT 184 10^3/uL (130-450); RED BLOOD COUNT 4.65 10^6/uL (4.70-6.10); RED CELL DISTRIBUTION WIDTH 15.6 % (12.0-15.0); WHITE BLOOD COUNT 11.1 x10^3/uL (4.8-10.8)
[2021-12-25 05:20] LABS: ALBUMIN 3.8 g/dL (3.2-5.5); ALBUMIN/GLOBULIN RATIO 1.5 (1.0-2.2); BILIRUBIN,TOTAL 1.6 mg/dL (0.2-1.0); CALCIUM 8.5 mg/dL (8.5-10.3); CREATININE 1.4 mg/dL (0.6-1.2); POTASSIUM 2.9 mmol/L (3.5-5.0); TOTAL PROTEIN 6.4 g/dL (6.7-8.2)
[2021-12-25 05:49] VITALS: BP 133/99
--- NOTE | 2021-12-25 08:51 | ED Physician Documentation ---
ED Addendum - Addendum Addendum: 12/25/21 08:40 Received sign out from Dr. Grullon at end of her shift; please see her note for detailed H+P. Patient had presented for chief complaint of dyspnea x 1 month, but also noted abdominal pain x 1 week and had tenderness on abdominal exam and elevated bilirubin, AST, and ALT on blood tests. CT scan showed "moderate wall thickening is seen of the gallbladder" (per radiologist's reading) and subsequent US reading included (again per radiologist's reading): 1. There is trace pericholecystic fluid. The gallbladder wall is at the upper limits of normal. There is a trace amount of ascites. These findings are nonspecific and could be active due to ascites. No gallstones. If clinically indicated HIDA scan may be helpful for further evaluation The ultrasound reading also included note of no dilatation of intrahepatic ducts and extrahepatic bile duct caliber and top-normal range. Plan was to admit patient to appropriate facility for further workup, specifically MRCP. MRI is not available throughout the weekend at [facility] and thus other facilities were contacted and he is on waiting list at some facilities. I did hear from Dr. Ta, GI at [facility]. Patient's presentation and test results were discussed. Dr. Ta recommends repeat bilirubin and LFT in the morning as well as repeat ultrasound, which can be done from ED. If repeat tests, and patient's symptoms, are improving, can consider discharge. If the repeat blood work is not worsening but symptoms persist or worsen, can consider contacting [facility] surgery container finisher for consideration of admission to [facility], and if repeat tests are worsening (particularly if bilirubin is 4.0 or higher), would pursue transfer process. Currently there are no beds available at [facility] (per the staffing and scheduling coordinator that is on the line during this conversation). Repeat blood tests show improvement in bilirubin, AST , and ALT. He did not complain of increasing nor recurrent abdominal pain. He did become increasingly angry and demanding, insisting on being given food (specifically, and repeatedly, demanding an egg salad sandwich). He is allowed clear liquids in ED but I do not feel comfortable with solid foods until he has repeat ultrasound (which is ordered but drier unloader will not be in house until 9 AM). At approximately 6:45 AM, patient began yelling at staff, using expletives, and then got up and without assistance or walker, ambulated to the exit and said he was leaving now. He was not in any obvious painful nor respiratory distress and he left before I was able to talk to him about leaving against medical advice.
== END 2021-12-25 06:58 | disposition left against medical advice (07) ==
LOC: ED 15:15
DX: K81.9 Cholecystitis, unspecified (principal); K83.1 Obstruction of bile duct; I11.0 Hypertensive heart disease with heart failure; I50.9 Heart failure, unspecified; I49.3 Ventricular premature depolarization; J44.9 Chronic obstructive pulmonary disease, unspecified; F17.200 Nicotine dependence, unspecified, uncomplicated; Z79.899 Other long term (current) drug therapy
CPT/HCPCS: 36415; 71045; 71275; 74177; 76705; 80053; 83690; 83880; 84484; 85025; 85379; 87070; 87430; 87633; 93005; 94640; 96374; 96375; 99284; A9270; Q9967